=== PATIENT | male | born 1980 | race African-American/Black ===

== ENCOUNTER 2019-12-16 16:13 | Emergency (ER) | payer BC ==
[2019-12-16 16:38] LABS: ABS Basophils 0.1 10^3/ul (0-0.2); ABS Eosinophils 0.2 10^3/ul (0-0.6); ABS Lymphocytes 2.8 10^3/ul (1.0-4.8); ABS Monocytes 0.7 10^3/ul (0-0.8); ABS Neutrophils 4.1 10^3/ul (1.5-7.7); Eosinophil % 2.7 %; Hematocrit 47 % (42-52); Hemoglobin 17.1 g/dL (14.0-18.0); Lymphocyte % 35.5 %; Mean Corpuscular HGB Conc 36 g/dL (31-36); Mean Corpuscular Hemoglobin 31 pg (27-31); Mean Corpuscular Volume 85 fL (80-94); Mean Platelet Volume 9.6 fL (7.4-10.4); Nucleated Red Blood Cells % 0.2; Platelet Count 175 10^3/uL (150-450); Red Blood Count 5.56 10^6 /uL (4.18-5.48); Red Cell Distribution Width 15 % (10-15)
[2019-12-16 16:43] LABS: INR 1.02 (0.82-1.09)
--- NOTE | 2019-12-16 16:54 | ED ---
Dizziness - HPI Summary HPI Summary: 39 y/o male presented to [facility] for dizzy spells as well as pain and tightness in the arm and chest beginning 1 hour [employer]UX T[employer]. Pt notes he feels little pressure now and no radiation of pain. He denies SOB, leg pain, and leg swelling. Pt had a similar episode in [place] in which he was not admitted and was given an EKG but no stress test. Pt endorsed hx of smoking and HTN, but no hx of blood clots, diabetes, or cardiac disease. - History Of Current Complaint Chief Complaint: EDChestPainROMI Stated Complaint: CHEST PAIN PER PT Time Seen by Provider: 12/16/19 16:23 Hx Obtained From: Patient Onset/Duration: Still Present Timing: Hours Severity Currently: Mild Character: Dizzy Aggravating Factor(s): Nothing Alleviating Factor(s): Nothing Associated Signs And Symptoms: Positive: Chest Pain, Other: - negative leg pain , leg swelling. Negative: SOB - Allergies/Home Medications Allergies/Adverse Reactions: Allergies Allergy/AdvReac Type Severity Reaction Status Date / Time No Known Allergies Allergy Verified 12/16/19 17:42 Home Medications: Home Medications Lisinopril/Hydrochlorothiazide [Lisinopril-Hctz 10-12.5 mg Tab] 1 each PO DAILY 12/16/19 [History Confirmed 12/16/19] amLODIPine TAB* [Norvasc 5 mg TAB*] 5 mg PO DAILY 12/16/19 [History Confirmed ] amLODIPine TAB* [Norvasc 5 mg TAB*] 5 mg PO DAILY #30 tab 12/16/19 [Rx] PMH/Surg Hx/FS Hx/Imm Hx Cardiovascular History: Reports: Hx Hypertension Sensory History: Denies: Hx Legally Blind, Hx Deafness Opthamlomology History: Denies: Hx Legally Blind EENT History: Denies: Hx Deafness Infectious Disease History: No Infectious Disease History: Denies: Traveled Outside the [place] in Last 30 Days - Family History Known Family History: Positive: Cardiac Disease, Hypertension Negative: Diabetes - Social History Occupation: Unemployed Lives: With Family - Alcohol Use: Occasionally Hx Substance Use: No Hx Tobacco Use: Yes Review of Systems Positive: Chest Pain - also in arm and shoulder Negative: Shortness Of Breath Positive: Other - negative leg pain. Negative: Edema All Other Systems Reviewed And Are Negative: Yes Physical Exam - Summary Physical Exam Summary: Constitutional: Well-developed, Well-nourished, Alert. (-) Distressed Skin: Warm, Dry HENT: Normocephalic; Atraumatic Eyes: Conjunctiva normal Neck: Musculoskeletal ROM normal neck. (-) JVD, (-) Stridor, (-) Tracheal deviation Cardio: Rhythm regular, rate normal, Heart sounds normal; Intact distal pulses; The pedal pulses are 2+ and symmetric. Radial pulses are 2+ and symmetric. (-) Murmur Pulmonary/Chest wall: Effort normal. (-) Respiratory distress, (-) Wheezes, (-) Rales Abd: Soft, (-) tenderness, (-) Distension, (-) Guarding, (-) Rebound Musculoskeletal: (-) Edema Lymph: (-) Cervical adenopathy Neuro: Alert, Oriented x3 Psych: Mood and affect Normal Triage Information Reviewed: Yes Vital Signs On Initial Exam: Initial Vitals Temp Pulse Resp BP Pulse Ox 98.2 F 96 19 202/105 97 12/16/19 16:18 12/16/19 16:18 12/16/19 16:18 12/16/19 16:18 12/16/19 16:18 Vital Signs Reviewed: Yes Procedures - Sedation Patient Received Moderate/Deep Sedation with Procedure: No Diagnostics - Vital Signs Vital Signs Temp Pulse Resp BP Pulse Ox 12/16/19 16:18 98.2 F 96 19 202/105 97 - Laboratory Lab Results: Lab Results 12/16/19 12/16/19 Range/Units 16:30 16:30 WBC 8.0 (3.5-10.8) 10^3/uL RBC 5.56 H (4.18-5.48) 10^6 /uL Hgb 17.1 (14.0-18.0) g/dL Hct 47 (42-52) % MCV 85 (80-94) fL MCH 31 (27-31) pg MCHC 36 (31-36) g/dL RDW 15 (10-15) % Plt Count 175 (150-450) 10^3/uL MPV 9.6 (7.4-10.4) fL Neut % (Auto) 51.0 % Lymph % (Auto) 35.5 % Gonzales % (Auto) 9.3 % Eos % (Auto) 2.7 % Baso % (Auto) 1.5 % Absolute Neuts (auto) 4.1 (1.5-7.7) 10^3/ul Absolute Lymphs (auto) 2.8 (1.0-4.8) 10^3/ul Absolute Monos (auto) 0.7 (0-0.8) 10^3/ul Absolute Eos (auto) 0.2 (0-0.6) 10^3/ul Absolute Basos (auto) 0.1 (0-0.2) 10^3/ul Absolute Nucleated RBC 0.0 10^3/ul Nucleated RBC % 0.2 INR (Anticoag Therapy) 1.02 (0.82-1.09) Result Diagrams: 12/16/19 16:30 12/16/19 16:30 Lab Statement: Any lab studies that have been ordered have been reviewed, and results considered in the medical decision making process. - Radiology cxr Radiology Interpretation Completed By: Radiologist Summary of Radiographic Findings: IMPRESSION: NO ACTIVE CARDIOPULMONARY DISEASE. This report was reviewed by Dr. Blanco. - EKG 1618 Cardiac Rate: NL EKG Rhythm: Sinus Rhythm Summary of EKG Findings: EKG at 1618 shows NSR at 80bpm. Early repol pattern, no ischemic changes. This EKG was reviewed and interpreted by Dr. Blanco. 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 Pt notes he feels little pressure now and no radiation of pain. He denies SOB, leg pain, and leg swelling. Pt had a similar episode in [place] in which he was not admitted and was given an EKG but no stress test. Pt endorsed hx of smoking and HTN, but no hx of blood clots, diabetes, or cardiac disease. Exam was normal. Bloodwork showed RBC H, creatinine H, AST H, and ALT H. UA showed . EKG EKG at 1618 shows NSR at 80bpm. Early repol pattern, no ischemic changes. X- ray chest showed NO ACTIVE CARDIOPULMONARY DISEASE. Pt was given 5mg PO Norvasc , 15mg IV Hydralazine. BP trending down towards normal. Patient feeling improved, well for discharge home. Given refill for Norvasc and given PCP referral. - Diagnoses Provider Diagnoses: Chest pain, Hypertensive urgency Discharge ED - Sign-Out/Discharge Documenting (check all that apply): Patient Departure - dc - Discharge Plan Condition: Stable Disposition: HOME Prescriptions: amLODIPine TAB* [Norvasc 5 mg TAB*] 5 mg PO DAILY #30 tab Patient Education Materials: Chest Pain (ED), Anemia (ED) Referrals: [facility] [Outside] Additional Instructions: Follow up with your primary care provider in 2-3 days. If you experience new or worsening symptoms please return to the ER. - Billing Disposition and Condition Condition: STABLE Disposition: Home - Attestation Statements Document Initiated by Laryibe: Yes Documenting Scribe: Mayito Boudreaux Provider For Whom Solomon is Documenting (Include Credential): Alvarez Blanco DO Scribpeterson Attestation: Mayito Jaramillo scribed for Alvarez Blanco DO on 12/16/19 at 2114. Scribe Documentation Reviewed: Yes Provider Attestation: The documentation as recorded by the Mayito kang accurately reflects the service I personally performed and the decisions made by Alvarez hurley DO Status of Scribpeterson Document: Viewed
[2019-12-16 16:56] LABS: Albumin 4.7 g/dL (3.2-5.2); Albumin/Globulin Ratio 1.6 (1-3); BUN/Creatinine Ratio 11.6 (8-20); Calcium 9.2 mg/dL (8.6-10.3); EGFR African American 74.3 (>60); EGFR Non-African American 61.4 (>60); Potassium 3.5 mmol/L (3.5-5.0); Total Bilirubin 0.7 mg/dL (0.2-1.0); Total Protein 7.7 g/dL (6.4-8.9)
[2019-12-16 16:58] LABS: Troponin I 0.01 ng/mL (<0.03)
[2019-12-16] MEDS ORDERED: hydrALAZINE IV* 20 MG/ML VIAL IV SLOW PU ONE (17:07)
[2019-12-16] MEDS ORDERED: NS 0.9% 1000 ML** 1,000 ML IV ONE (17:07)
[2019-12-16] MEDS ORDERED: amLODIPine TAB* 5 MG PO ONE (17:55)
[2019-12-16 20:26] VITALS: BP 145/81
== END 2019-12-16 20:25 | disposition home or self-care (01) ==
LOC: ED 16:13
DX: R07.89 Other chest pain (principal); I16.0 Hypertensive urgency
CPT/HCPCS: 36415; 71045; 80053; 84484; 85025; 85610; 93005; 96361; 96374; 99283; A9270-GY; J0360